=== PATIENT | male | born 1955 | race Caucasian/White ===

== ENCOUNTER 2023-05-23 10:24 | Outpatient (REF) | payer MEDICARE, OTHER, SELFPAY ==
--- NOTE | 2023-05-23 10:33 | ECG_ITS ---
Test Reason : HYPERTENSION Blood Pressure : / mmHG Vent. Rate : 085 BPM Atrial Rate : 085 BPM P-R Int : 156 ms QRS Dur : 086 ms QT Int : 382 ms P-R-T Axes : 052 -04 094 degrees QTc Int : 454 ms Normal sinus rhythm Nonspecific T wave abnormality Abnormal ECG No previous ECGs available Referred By: Chino Lombardo Electronically Signed By:JANET BURNETT MD
[2023-05-23 10:46] LABS: MANUAL DIFF FLAG NO
[2023-05-23 11:32] LABS: Basophils Percent Auto 0.5 % (0-2); Eosinophils Absolute Auto 0.2 X10*3/uL (0.0-0.4); Eosinophils Percent Auto 2.9 % (0-4); Hematocrit 43.9 % (42.0-52.0); Hemoglobin 14.6 g/dl (14.0-18.0); Imm Gran Abs Auto 0.06 X10*3/uL (0.00-0.03); Imm Gran Pct Auto 0.7 % (0.0-0.4); Lymphocytes Absolute Auto 2.8 X10*3/uL (1.2-4.9); Lymphocytes Percent Auto 34.5 % (20-40); Mean Corpuscular HGB Conc 33.3 g/dl (31.0-36.0); Mean Corpuscular Hemoglobin 29.9 pg (27.0-33.0); Mean Platelet Volume 9.7 fL (9.4-12.4); Monocytes Absolute Auto 0.6 X10*3/uL (0.1-1.2); Monocytes Percent Auto 7.2 % (2-11); Neutrophils Absolute Auto 4.3 x10*3/uL (2.0-8.3); Neutrophils Percent Auto 54.2 % (45-73); Platelet Count 226 X10*3/uL (160-400); Red Blood Count 4.88 X10*6/uL (4.60-5.80); Red Cell Distribution Width 13.9 % (11.0-16.0)
[2023-05-23 11:45] LABS: Estimated Average Glucose 171 mg/dL; Hemoglobin A1c % 7.6 % (<6.0)
[2023-05-23 12:28] LABS: Alanine Aminotransferase 16 U/L (0-40); Albumin Level 4.1 g/dL (3.5-5.0); Alkaline Phosphatase 92 U/L (39-117); Anion Gap 11 (12-20); Aspartate Amino Transferase 12 U/L (5-37); Bilirubin Total 0.4 mg/dL (0.0-1.0); Blood Urea Nitrogen 16 mg/dL (9-16); Calcium 8.9 mg/dL (8.4-10.2); Carbon Dioxide 27 mmol/L (22-29); Chloride 108 mmol/L (96-108); Cholesterol 148 mg/dL (<200); Estimated Glomerular Filt Rate > 60; Glucose Random 165 mg/dL (60-115); HDL Cholesterol 53 mg/dL (>40); LDL Cholesterol Calculated 85 mg/dL (<100); Potassium 4.5 mmol/L (3.3-5.1); Sodium 141 mmol/L (135-145); Total Protein 6.9 g/dL (6.5-8.0); Triglycerides 51 mg/dL (<150)
[2023-05-23 12:56] LABS: Creatinine Urine 196.37 mg/dL; Microalbum/Creatinine Ratio Ur 100.8 ug/mg cr (<30)
== END 2023-05-23 10:25 | disposition home or self-care (01) ==
LOC: HO.LAB 10:24
PROVIDERS: PCP Internal Medicine Medical Oncology; Visit Provider Internal Medicine Medical Oncology
DX: Z01.818 Encounter for other preprocedural examination (principal); R33.9 Retention of urine, unspecified; N40.1 Benign prostatic hyperplasia with lower urinary tract symptoms; I10 Essential (primary) hypertension; E11.9 Type 2 diabetes mellitus without complications
CPT/HCPCS: 36415; 80053; 80061; 82043; 82570; 83036; 85025; 87086; 93005

== ENCOUNTER 2023-05-24 12:56 | Outpatient (REF) | payer MEDICARE, OTHER, SELFPAY | END 2023-05-24 12:57 | disposition home or self-care (01) | LOC: HO.LAB 12:56 | PROVIDERS: PCP Internal Medicine Medical Oncology; Visit Provider Internal Medicine Medical Oncology | DX: Z01.818 Encounter for other preprocedural examination (principal); R33.9 Retention of urine, unspecified | CPT/HCPCS: 87086; 87088; 87186 ==

== ENCOUNTER → 2024-03-28 09:47 | Outpatient (REF) | payer MEDICARE, OTHER, SELFPAY ==
--- NOTE | 2024-03-28 09:54 | CA_ITS ---
Acquisition Time: 2024-03-28 10:12:15 Total Exercise Time: 00:05:01 Test Indications: CP Medications: SEE H Protocol: MARLENI Max HR: 133 BPM 89% of Pred: 149 BPM Max BP: 164/094 mmHG Max Work Load: 5.4 METS Exercise stress test exercise 5 min 1 sec of Marleni protocol (stage 2 nmanually increaserd due to safety) achieivng 89% MPHR, with moderate SOB, no chest discomforts, with isolated PACs and PVCs, with normotensive response to exercise, without EKG changes. Breathing returned to baseline with rest. Test reviewed with Dr. York. Referred By: Chino Lombardo Overread By: Serina Dennis
== END ==
LOC: HO.CARD 09:47
PROVIDERS: PCP Internal Medicine Medical Oncology; Visit Provider Internal Medicine Medical Oncology
DX: E78.5 Hyperlipidemia, unspecified (principal); I10 Essential (primary) hypertension
CPT/HCPCS: 93017

== ENCOUNTER → 2024-03-28 09:54 | Outpatient (BNV) | payer MEDICARE, OTHER, SELFPAY | PROVIDERS: PCP Internal Medicine Medical Oncology; Visit Provider Nurse Practitioner | DX: R06.02 Shortness of breath (principal); I49.1 Atrial premature depolarization; I49.3 Ventricular premature depolarization | CPT/HCPCS: 93016; 93018 ==

== ENCOUNTER 2025-01-21 15:31 | Outpatient (AMB) | payer MEDICARE, OTHER, SELFPAY ==
--- OUTSIDE RECORDS SUMMARY | 2024-09-12 09:22 | XMS_ITS ---
Author Organization Chino Lombardo III, MD Address [address] [place] [address] [place] [address] Care Team Providers Care Survey Interviewer Name Role Phone Chino Lombardo Primary Care Provider Social History Sex Assigned At : Social History Observation Description Sex Assigned At Male Encounters Encounter Location Date Provider Diagnosis Chino Lombardo III, MD [address] [place] [address] [place] [address] 09/12/2024 Chino Lombardo Encounter for screening for malignant neoplasm of colon Z12.11 Assessments Encounter Date Diagnosis (ICD Code) Assessment Notes Treatment Notes Treatment Clinical Notes 09/12/2024 Encounter for screening for malignant neoplasm of colon (ICD-10 - Z12.11) Plan Of Treatment Pending Test Test Name Order Date COLOGUARD 09/12/2024 Next Appt Details Provider Name:Chino Lombardo, 01/22/2025 03:45:00 PM, [address] [place] [address] [place], [address], Provider Name:Chino Lombardo, 09/05/2025 02:00:00 PM, [address] [place] [address] [place], [address], Progress Notes * Brian RAMOS GDOB:[birth year] (69 yo M)Acc No.[id number]:09/12/2024 Patient: Elias Brian HARDEN :1955 A ge:69 Y S ex:Male Address:[address] [address], [place] [address] Subjective: * Chief Complaints: * * Medical History: * Surgical History: * Hospitalization/Major Diagno stic Procedure: * Medications: Objective: * Vitals: * Physical Examination: Assessment: * Assessment: 1. E ncounter for screening for malignant neoplasm of colon - Z12.11 Plan: * Treatment: * Procedure Codes: * true * Date: Generated for Neeru cronin/Ricky/Oscarsmitting on: 0 01/21/2025 04:16 PM EDT
--- NOTE | 2025-01-21 15:40 | MHC.OFFVIS ---
Vital Signs 01/21/25 15:41 Height 5 ft 10 in Intake Visit Reasons: 6m Allergies No Known Allergies Allergy (Mild, Unverified 01/21/25 15:46) NOT APPLICABLE Medication List - Last Reconciled 01/21/25 by Eliza Alfaro CNP atorvastatin 20 mg PO DAILY folic acid 1 mg PO DAILY gabapentin 1,800 mg PO DAILY insulin glargine (Basaglar KwikPen U-100 Insulin) units subcut lisinopril 20 mg PO DAILY metformin 1,000 mg PO BID HPI Comments Details: 69-year-old man with diabetes, bilateral foot neuropathic pain, and tremor. He was doing okay. Pain in feet was controlled with gabapentin. No falls. Sleep was okay. Tremor in hands may be slightly more. He had some trouble holding cup steady, otherwise no functional impairment. No difficulty eating or swallowing. [facility] Medical History (Updated 01/21/25 @ 15:44 by Eliza Alfaro CNP) Benign essential tremor Tarsal tunnel syndrome Review of Systems Const Denies chills, Denies daytime sleepiness, Denies difficulty sleeping, Denies fatigue, Denies fever(s), Denies frequent falls, Denies headache(s), Denies increased appetite, Denies poor appetite, Denies snoring, Denies weakness, Denies weight gain and Denies weight loss Eyes Denies loss of vision ENT Denies vertigo, Denies dizziness and Denies headache(s) Card Denies chest pain at rest, Denies chest pain with activity, Denies syncope, Denies leg edema and Denies palpitations Resp Denies snoring GI Denies constipation, Denies heartburn, Denies diarrhea and Denies nausea Denies urinary frequency, Denies urinary incontinence and Denies urinary urgency Musc Denies abnormal gait, Reports numbness and Reports tingling Skin/Breast Denies dry skin and Denies rash Neuro Denies abnormal gait, Denies vertigo, Denies dizziness, Denies syncope, Denies frequent falls, Denies headache(s), Denies lack of coordination, Denies loss of vision, Denies memory loss, Reports numbness, Denies restless legs, Denies seizure-like activity, Reports tingling, Denies paresthesias, Reports tremor(s) and Denies weakness Psych Denies anxiety, Denies depression, Denies auditory hallucinations, Denies memory loss, Denies visual hallucinations and Denies suicidal ideation Endo Denies fatigue and Denies palpitations Physical Exam Const Other: General Appearance:? normal, in no acute distress. Skin:? no rashes, no significant birthmarks. Heart:? S1, S2 normal, no murmurs. Lungs:? clear anteriorly and posteriorly. Extremities:? no edema. Psych:? alert, oriented, cognitive function intact, cooperative with exam. Neuro Other: Mental Status:?Normal attention, orientation, memory and affect.? Cranial Nerves:?Pupils are equal, round and reactive to light. External occular muscles are intact. Visual lemon are full. Face is symmetrical. Facial sensations are normal. Tongue is midline. Palate elevates symmetrically. Shoulder shrugging is normal. Hearing to bedside conversation is normal. Coordination:?No ataxia,?no titubation.? Gait Exam: Within normal limits. Cerebellar Signs:?Prxoux-ob-exdk with tremor. Extrapyramidal System:?No tremor, rigidity with normal facial expressions.? Pronator Drift:?Not present.? Involuntary Movements:?Fine tremors of the outstretched hands, R > L? Speech:?Normal.? Assessment & Plan Assessment & Plan (1) Tarsal tunnel syndrome: Code(s): G57.50 - Tarsal tunnel syndrome, unspecified lower limb Category: Medical Qualifiers: Laterality: bilateral Qualified Code(s): G57.53 - Tarsal tunnel syndrome, bilateral lower limbs Plan: Continue gabapetin 600mg 3 tablets daily. (2) Neuropathic pain: Code(s): M79.2 - Neuralgia and neuritis, unspecified Category: Medical (3) Benign essential tremor: Code(s): G25.0 - Essential tremor Category: Medical Plan: Discussed option for medication, declining at this time. Plan . Coding Level of Care Code Est Pt Level 4 (11605) Diagnoses Tarsal tunnel syndrome of both lower extremities G57.53 Laterality: bilateral Neuropathic pain M79.2 Benign essential tremor G25.0
--- OUTSIDE RECORDS SUMMARY | 2025-01-21 16:16 | XMS_ITS | Continuity of Care Document ---
Author Name [facility] Organization [facility] Care Team Providers Care Airdox Fitter Name Role Phone [facility] Unavailable Unavailable Problems Combined list of problems from [facility] of [facility] and [facility] Affairs facilities. It does not include entries that were removed or entered in error. Problem Status Onset Date Problem Type Date of Resolution Comments Source Alcohol Abuse Active Condition [facility] Dyslipidemia (ICD-9-CM 272.4) Active Condition [facility] Essential hypertension Active Condition [facility] HTN Active Condition [facility] Peripheral Nerve Disease Active Condition May 18, 2011 Entered By: GO VALDES Comment: NCS 04/04 bilateral distal tibial neuropathy c/w tarsalNov 2010 Entered By: GO VALDES Comment: tunnel syndrome [facility] PMR - Polymyalgia rheumatica Active Condition Jul 06, 2021 Entered By: GO VALDES Comment: 10/2019 tx'ed for a year with prednisone [facility] Screening for Malignant Neoplasms of colon Active Condition Jan 15, 2008 Entered By: BOBBI TA Comment: Last Colonoscopy JUL 2007: Neg CRC; Repeat 2018 [facility] Type 2 diabetes mellitus Active Condition [facility] Medications Combined list of outpatient medications from [facility] and [facility] facilities.Medications provided include 1) outpatient medications from the last 15 months, and 2) patient-reported medications. Medication Details Route Status Patient Instructions Prescription Expires Prescription Number Last Dispense Date Ordering Provider Order Date Order Qty Source ASPIRIN 81MG TAB,EC TAKE ONE TABLET BY MOUTH EVERY DAY ORAL ACTIVE BASIM VALDES 2007 IELD ATORVASTATI N TAB TAKE BY MOUTH ONCE DAILY ORAL ACTIVE BASIM VALDES 2021 [facility] GABAPENTIN 600MG TAB TAKE ONE TABLET BY MOUTH THREE TIMES A DAY FOR NERVE PAIN ORAL 12/29/2024 [id number] 5 Joelle FITCH 2023 270 [facility] LISINOPRIL TAB TAKE BY MOUTH ONCE DAILY ORAL ACTIVE BASIM VALDES 2021 IELD METFORMIN HCL TAB,ORAL TAKE BY MOUTH TWICE DAILY ORAL ACTIVE BASIM VALDES 2021 IELD Immunizations Combined list of available immunizations from the Department of Defense and Veterans Affairs facilities. Immunization Series Date Given Administered By Site Reaction Lot Number CVX Code Drug Barrel Scraper Status Comments Source COVID-19 (MODERNA), MRNA, LNP-S, PF, 100 MCG/0.5ML DOSE OR 50 MCG/0.25ML DOSE 3 2021 207 complet ed MOD; [id number]; 2 IELD COVID-19 (MODERNA), MRNA, LNP-S, PF, 100 MCG OR 50 MCG DOSE 3 2020 207 complet ed MOD; [id number]; 2 IELD INFLUENZA, UNSPECIFIED FORMULATION 2020 88 complet ed [facility] COVID-19 (MODERNA), MRNA, LNP-S, PF, 100 MCG/0.5 ML DOSE 2 2020 207 complet ed MOD; [id number]; 1 IELD COVID-19 (MODERNA), MRNA, LNP-S, PF, 100 MCG/0.5 ML DOSE 1 2020 207 complet ed MOD; [id number]; 1 IELD zoster recombinant 2019 [facility], () Not Given zoster recombina nt [facility] zoster recombinant 2018 [facility], () Not Given zoster recombina nt [employer] INFLUENZA, SEASONAL, INJECTABLE 2018 141 complet ed outside pcp [facility] Encounters Combined list of: 1) Encounters from Department of Veterans Affairs facilities going backup to the last 18 months, not all VA inpatient encounters are included; 2) Encounters from the Department of Defense facilities going backup to 280 months. Location Location Details Encounter Type Encounter Number Reason For Visit Attending Provider ADM Date DC Date Status Disposition Source [facility] En[facility] [id number] 12/28 [facility] Social History Combined list of available smoking, tobacco, and other social history from Department of Defense and Veterans Affairs facilities. 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 [facility] This section is an empty social history section. DoD
--- OUTSIDE RECORDS SUMMARY | 2025-01-21 16:17 | XMS_ITS | Encounter Summary ---
Author Organization [facility] Address [address] [place] [id number] Phone Care Team Providers Care Stogy Roller Name Role Phone Chino Lombardo MD Primary Care Provider [phone] Encounter Details Date Type Department Care Team (Late st Contact Info) Description 05/31/2023 Procedure Pass [facility] [address] [place] [address] Social History Tobacco Use Types Packs/Day Years Used Date Smoking Tobacco: Some Days Cigars Smokeless Tobacco: Never Alcohol Use Standard Drinks/Week Comments Yes 4 (1 standard drink = 0.6 oz pur e alcohol) Education Answer Date Recorded Are you interested in more education? Not on hollie e 01/16/2023 Are you concerned about learning? Not on file 01/16/2023 No 01/16/2023 No 01/16/2023 Digital Access Answer Date Recorded No 01/16/2023 No 01/16/2023 Reliable internet access at home? Not on file 01/16/2023 Device with a working camera? Not on file Intimate Partner Violence Answer Date R ecorded Are you denied basic needs s uch as food, clothing, or medical care? No 05/31/2023 In the past 12 months have y ou been in a relationship with a person who hurts, threatens, or tries to control you? No 05/31/2023 Are you denied basic needs s uch as food, clothing, or medical care? No 05/31/2023 In the past 12 months have y ou been in a relationship with a person who hurts, threatens, or tries to control you? No 05/31/2023 Sex and Gender Information Value Date Recorded Sex Assigned at Not on file Legal Sex Male 2:38 PM EDT Gender Identity Not on file Sexual Orientation Not on file documented as of this encounter Plan of Treatment Not on file documented as of this encounter Visit Diagnoses Not on filedocumented in this encounter Care Teams Stogy Roller Relationship Specialty Start Date End Date Chino Lombardo MD [address] [place] [id number] PCP - General Medical Oncology 01/16/23 documented as of this encounter Additional Source Comments The information contained in this document represents components of the legal health record. It is not the complete legal health record.[facility]
--- OUTSIDE RECORDS SUMMARY | 2025-01-21 16:17 | XMS_ITS | Clinical Summary ---
Author Organization [facility] lin Address [address] [place] [address] Care Team Providers Care Grounds Manager Name Role Phone Devon Perez MD Primary Care Provider Allergies No known active allergies Medications lisinopril (PRINIVIL,ZESTR IL) 10 MG tablet TAKE 1 TABLET BY MOUTH DAILY 3 09/19/2016 Active gabapentin (NEURONTIN) 600 MG tablet TAKE 1 TABLET BY MOUTH TWICE A DAY 2 09/23/2016 Active PREVIDENT 5000 BOOSTER PLUS 1.1 % pste USE DIRECTED 2 09/20/2016 Active omeprazole (PriLOSEC) 20 MG capsule TAKE 1 TABLET BY MOUTH TWICE A DAY TWICE A DAY ORAL 28 DAYS 1 04/14/2017 Active metFORMIN (GLUCOPHAGE) 500 MG tablet Take 500 mg by mouth 2 (two) times a day with meals. Active atorvastatin (LIPITOR) 10 MG tablet Take 10 mg by mouth daily. Active insulin glargine (LANTUS) 100 unit/mL injection Inject 12 Units under the skin nightly. Active folic acid (FOLVITE) 1 MG tablet TAKE 1 TABLET BY MOUTH EVERY DAY 3 01/21/2019 Active DAILY-YOVANA tablet TAKE 1 TABLET EVERY DAY 0 12/21/2018 Active predniSONE (DELTASONE) 5 MG tablet TAKE 1/2 TABLET IN THE MORNING 0 12/21/2018 Active tamsulosin (FLOMAX) 0.4 mg cap TAKE 1 CAPSULE BY MOUTH EVERY DAY DAILY AT 9PM 5 12/26/2018 Active VITAMIN B-1, MONONITRATE, 100 mg tab TAKE 1 TABLET BY MOUTH EVERY DAY 0 12/21/2018 Active Social History Tobacco Use Types Packs/Day Years Used Date Smoking Tobacco: Light Smoker Smokeless Tobacco: Never Tobacco Cessation:Ready to Q uit: Yes; Counseling Given: Yes Comments:occasional cigar Sex and Gender Information Value Date Recorded Sex Assigned at Not on file Legal Sex Male 11:29 AM EDT Gender Identity Not on file Sexual Orientation Not on file Last Filed Vital Signs Vital Sign Reading Time Taken Comments Blood Pressure 122/86 03/09/2019 2:03 PM EDT Pulse 70 03/09/2019 2:03 PM EDT Temperature 36.3 C (97.3 F) 03/09/2019 2:03 PM EDT Respiratory Rate 18 03/09/2019 2:03 PM EDT Oxygen Saturation 98% 03/09/2019 2:03 PM EDT Inhaled Oxygen Concentration - - Weight 83.9 kg (185 lb) 12/24/2018 3:21 PM EDT Height 172.7 cm (5' 8 ) 12/24/2018 3:21 PM EDT Body Mass Index 28.13 12/24/2018 3:21 PM EDT Plan of Treatment Health Maintenance Due Date Last Done Comments Colorectal Cancer: COLONOSCO PY Screening every 10 yrs (or Modifier) 1955 Depression: Screening Annual ly using PHQ-2/9 in Adults 18 yrs or above (or HM Modifier)([facility]) 1971 Hepatitis C Virus Infection in Adolescents and Adults: Screening (or Modifier) ([facility]) 1971 [facility] Screening Reminder: Sanjuanita perez for all adults ([facility]) 1971 Tobacco Smoking Cessation: i n Adults excluding Women: Behavioral and Pharmacotherapy Interventions ([facility]) 1971 DTaP/Tdap/Td Vaccines ([facility]) (1 - Tdap) 02/13/1972 Colorectal Cancer Screening 45 -75 Yrs (or HM Modifier ) 1998 Colorectal Cancer: FLEXIBLE SIGMOIDOSCOPY Screening every 5 yrs 1998 Colorectal Cancer: Fecal Imm unochemical Test (FIT) Annually [facility] 1998 Colorectal Cancer: High-sens itivity gFOBT Screening Annually [facility] 1998 Colorectal Cancer: Stool Col oguard Screening every 3 yrs 1998 Colorectal Cancer:CT Colonography Screening every 5 yr s 1998 Pneumococcal Vaccination Scr eening: Patients 50+ yrs of age ([facility]) (1 of 1 - PCV) 2003 Zoster/Shingles Vaccine Seri es Screening: Adults aged 18+ yrs (or HM Modifiers)([facility]) (1 of 2) 2003 COVID-19 Vaccine Screening: Initial Series and Booster Status ([facility]) (2023- season) 2024 Flu Vaccination: Ages 65+: Y early High Dose Recommended (or Modifier)([facility]) 01/24/2025 RSV Vaccines (1 - 1-dose 75+ series) 02/13/2028 Medical Devices Not on file Insurance [facility] MEDICARE Care Teams Grounds Manager Relationship Specialty Start Date End Date Devon Perez MD [address] [place] [address] PCP - [employer] Vice President 03/09/19
--- OUTSIDE RECORDS SUMMARY | 2025-01-21 16:17 | XMS_ITS ---
Author Name [facility] Organization Unknown Care Team Organization Name Specialty Phone Email Start Date End [facility] JENNIFER FELDMAN Primary Care 10/25/2024 Meir FELDMAN Primary Care 10/18/2024
--- OUTSIDE RECORDS SUMMARY | 2025-01-21 16:17 | XMS_ITS | Data Portability ---
Author Organization [place] - [facility] Medical -[place], [place]_[facility] [place] Address [address] [place] [address] Care Team Providers Care Contracting Specialist Name Role Phone DEVON FELDMAN Primary Care Provider DONNA CASTORENA Primary Care Provider [facility] (PRE ADMISSION TESTING) Urolog ist [facility] [employer] [employer] [phone] NORA TELLEZ Neurologist [employer] Cocktail Lounge Manager [phone] Assessment Encounter Date Assessment Date Assessment LastModified by Organization Details LastModified Time 10/16/2023 10/16/2023 During today's AWV we reviewed the followin - Any pertinent findings on the HRA (Health Risk Assessment) were reviewed and discussed with the patient. 2 - The patient's medical and family history was updated as needed. 3 - The patient's list of current providers, specialists and suppliers was updated. 4 - The patient's body weight and blood pressure was recorded in the chart. 5 - Cognitive function was assessed with a brief test. 6 - Depression screening was assessed. 7a - We reviewed USPSTF guidelines for the following as applicable to this patient: - Pre-Diabetes/DM II screening - Colorectal cancer screening - HTN screening - Vitamin D deficiency screening - Hearing loss screening - Healthy diet and physical activity 7b - We also reviewed current guidelines for vaccinations as applicable to this patient: - Flu vaccine yearly - Tdap vaccine w/Td or Tdap q10 years thereafter - Zoster vaccine - Prevnar 13 vaccine - Pneumococcal vaccine 8 - Lifestyle interventions to reduce health risks and promote self management and wellness were completed where applicable 9 - We updated the prevention plan of service including personalized health advice and referrals (where applicable) to health education and/or preventive counselling services or programs for the following (again, if and where applicable, if patient was amenable): - Fall prevention - Nutrition - Physical activity - Weight loss - Tobacco use cessation 10 - Advanced care planning was discussed at the patient's discretion. If the patient was amenable, we discussed their preparation of an advanced directive in case of an injury or illness that might prevent them from making health care decisions. 11 - If the patient is taking opioid medication(s), we provided information on non-opioid treatment options. Additionally, the severity of the patient's pain was evaluated and the current treatment plan was reviewed with the patient in an active discussion. [email or web address] Not available 10/16/2023 15:14:31 Plan of Treatment Reminders Order Date Submit Date Provider Last Modified By Organization Details Last Modified Time Details Appointments None recorded. Lab HbA1c (hemoglobin A1c), blood [address] [facility] Clinical Laboratory [facility], [address] [place] [address], [id number], 4 23:07:48 microalbumi n, urine 2023 024 [facility], [address] [place] [address], [id number], 4 23:07:49 CMP, serum or plasma 2023 024 [facility], [address] [place] [address], [id number], 4 23:07:47 HbA1c (hemoglobin A1c), blood 2022 023 [facility], [address] [place] [address], 56030, 3 22:34:50 CMP, serum or plasma 2022 023 [facility], [address] [place] [address], 21898, 3 22:34:48 microalbumi n, urine 2022 023 [facility], [address] [place] [address], 57652, 3 22:34:51 lipid panel, serum 2022 023 [facility], [address] [place] [address], 75847, 3 22:34:50 microalbumi n/creatinin e, mass ratio, urine 2022 023 [facility], [address] [place] [address], 33084, 3 06:27:27 HbA1c (hemoglobin A1c), blood 2022 023 [facility], [address] [place] [address], 44027, 3 14:16:47 lipid panel, serum 2022 023 [facility], [address] [place] [address], 76032, 3 06:27:27 Referral cardiologis t referral - PLEASE CONTACT PATIENT TO SCHEDULE APPOINTMENT , NOTIFY OUR OFFICE OF APPOINTMENT DATE (VIDYA Kearns , EXT [id number]) 2023 024 [email or web address] [address] [place], [address], 5 10:01:10 Procedures None recorded. Surgeries None recorded. Imaging CT, heart, w/o contrast, w/ coronary calcium score - PLEASE CONTACT PATIENT TO SCHEDULE APPOINTMENT , NOTIFY OUR OFFICE OF APPOINTMENT DATE (VIDYA Kearns , EXT [id number]) 2023 024 [facility], [address], [place], [address], 10:31:55 Medication Orders atorvastati n 20 mg tablet 2023 024 [id number], [address] [place], [address], 4 14:28:31 ofloxacin 0.3 % ear drops 2022 023 [email or web address] [id number], [address] [place], [address], 15:11:31 Patient TargetsNo targets recorded. Patient Instructions Encounter Date Encounter Id Patient Instructions Last Modified By Organization Details Last Modified Time 01/03/2023 [id number] stable, cont wit h urology, chk labs, cont meds [email or web address] Not available 01/03/2023 13:57:15 10/16/2023 [id number] advance care planning: care instructions [email or web address] Not available 10/16/2023 16:15:59 advance directiv es: care instructions [email or web address] Not available 10/16/2023 16:15:59 learning about m ood disorders [email or web address] Not available 10/16/2023 16:15:59 learning about depression screening [email or web address] Not available 10/16/2023 16:15:59 It was good to s ee you in the office today for your Medicare Annual Wellness Visit. You have been provided some information on healthy nutrition, including a diet rich in fruits and vegetables, minimizing simple carbohydrates, salt, and saturated fats. I want to encourage regular cardiovascular exercise such as walking at least 30 minutes daily, 5 times per week. Please remember to schedule any preventive health measures that we talked about today. You have also been provided education on fall prevention and community-based lifestyle interventions to help reduce health risks and promote healthy living in your Annual Wellness folder. Screening Recommendations 1. Vaccines Pneumonia: No further need Influenza: Next Fall 2. Colorectal Cancer Screening: Colonoscopy (every 10 years) Next Screening 3. Annual Prostate Screening 4. Annual Depression Screening 5. Annual Alcohol Screening 6. Annual Fall Risk Screening 7. Annual Health Risk Assessment [email or web address] Not available 10/16/2023 15:28:45 Reason for Referral Acute Care Assistant Referral for Ca lcification of coronary artery Please see for elevated calcium score, EST is negative at this time. PLEASE CONTACT PATIENT TO SCHEDULE APPOINTMENT, NOTIFY OUR OFFICE OF APPOINTMENT DATE (VIDYA Kearns [phone], EXT [id number]) Referring Physician: Devon Feldman, Internal Medicine, Encounter Date: 04/10/2024 Results Created Date Observation Date Name Description Value Unit Range Abnormal Flag Note LastModifiedBy Organization Detail LastModifiedTime 06/13/20 23 06/13/2023 ANION GAP anion gap 13 mEq/L 4 - 20 Not Available [facility] [address] [place] [address], [id number], 06/13/2023 22:34:47 06/13/20 23 06/13/2023 COMPR EHENS PAUL METAB OLIC PANEL glucose 140 mg/dL 70 - 99 high Not Available [facility] [address] [place] [address], [id number], 06/13/2023 22:34:48 06/13/20 23 06/13/2023 COMPR EHENS PAUL METAB OLIC PANEL BUN 18 mg/dL 8 - 23 Not Available [facility] [address] [place] [address], 18714, 06/13/2023 22:34:48 06/13/20 23 06/13/2023 COMPR EHENS PAUL METAB OLIC PANEL creatinine 1.10 mg/dL 0.8 - 1.40 Not Available [facility] [address] [place] [address], 35987, 06/13/2023 22:34:48 06/13/20 23 06/13/2023 COMPR EHENS PAUL METAB OLIC PANEL BUN/creat ratio 16.4 Not Available [facility] [address] [place] [address], 86966, 06/13/2023 22:34:48 06/13/20 23 06/13/2023 COMPR EHENS PAUL METAB OLIC PANEL calcium 9.4 mg/dL 8.5 - 10.5 Not Available [facility] [address] [place] [address], 93611, 06/13/2023 22:34:48 06/13/20 23 06/13/2023 COMPR EHENS PAUL METAB OLIC PANEL osmolality 278.0 mOsm/ kg 270 - 290 Not Available [facility] [address] [place] [address], 55566, 06/13/2023 22:34:48 06/13/20 23 06/13/2023 COMPR EHENS PAUL METAB OLIC PANEL sodium 137 mEq/L 135 - 146 Not Available [facility] [address] [place] [address], 79976, 06/13/2023 22:34:48 06/13/20 23 06/13/2023 COMPR EHENS PAUL METAB OLIC PANEL potassium 4.7 mEq/L 3.5 - 5.4 SPECI MEN IS HEMOL YZED, RESUL TS MAY BE AFFEC GISELE Not Available [facility] [address] [place] [address], [id number], 06/13/2023 22:34:48 06/13/20 23 06/13/2023 COMPR EHENS PAUL METAB OLIC PANEL chloride 102 mEq/L 96 - 106 Not Available [facility] [address] [place] [address], [id number], 06/13/2023 22:34:48 06/13/20 23 06/13/2023 COMPR EHENS PAUL METAB OLIC PANEL carbon dioxide 22 mEq/L 19 - 32 Not Available [facility] [address] [place] [address], 35174, 06/13/2023 22:34:48 06/13/20 23 06/13/2023 COMPR EHENS PAUL METAB OLIC PANEL total protein 6.5 gm/dL 6.1 - 8.3 JABARI LS FOR PATIE NTS LYING DOWN COULD BE MUCH 0.7 GM/DL LOWER . Not Available [facility] [address] [place] [address], 86621, 06/13/2023 22:34:48 06/13/20 23 06/13/2023 COMPR EHENS PAUL METAB OLIC PANEL albumin 4.5 gm/dL 3.5 - 5.2 Not Available [facility] [address] [place] [address], [id number], 06/13/2023 22:34:48 06/13/20 23 06/13/2023 COMPR EHENS PAUL METAB OLIC PANEL globulin 2.0 gm/dL 1.9 - 3.7 Not Available [facility] [address] [place] [address], 96682, 06/13/2023 22:34:48 06/13/20 23 06/13/2023 COMPR EHENS PAUL METAB OLIC PANEL A/G ratio 2.3 Not Available [facility] [address] [place] [address], 14812, 06/13/2023 22:34:48 06/13/20 23 06/13/2023 COMPR EHENS APUL METAB OLIC PANEL AST (SGOT) 15 U/L 9 - 50 Not Available [facility] [address] [place] [address], 11240, 06/13/2023 22:34:48 06/13/20 23 06/13/2023 COMPR EHENS PAUL METAB OLIC PANEL ALT (SGPT) 18 U/L 5 - 50 Not Available [facility] Laboratory [address] [place] [address], 70519, 06/13/2023 22:34:48 06/13/20 23 06/13/2023 COMPR EHENS PAUL METAB OLIC PANEL alkaline phosphatase 73 U/L 40 - 125 Not Available [facility] [address] [place] [address], 50081, 06/13/2023 22:34:48 06/13/20 23 06/13/2023 COMPR EHENS PAUL METAB OLIC PANEL total bilirubin 0.6 mg/dL 0.0 - 1.2 Not Available [facility] [address] [place] [address], 13456, 06/13/2023 22:34:48 06/13/20 23 06/13/2023 EGFR eGFR 72 mL/mi n/1.7 3M >60 EFFEC TIVE DECEM USHA 6 2020, [facility] HAS IMPLE MENTE D NKF-A SN RECOM ANSHUL D 2020 CKD-E PI EGFR REFIT CALCU LATIO N THAT DOES NOT INCLU DE A COEFF ICIEN T FOR RACE. FOR MORE INFOR BRODIE LOPEZ E SEE THE ANNOU NCEME NT AT WWW.E SCLAB .COM Not Available [facility] [address] [place], [address], 06/13/2023 22:34:49 06/13/20 23 06/13/2023 HEMOG LOBIN A1C hemoglobin A1C 7.8 % 4.2 - 5.6 high HEM OGLOB IN A1C DEGRE E OF GLUCO SE CONTR OL <5.7 DECRE ASED RISK OF DIABE RADHA 5.7-6 .4 INCRE ASED RISK OF DIABE RADHA >6.4 CONSI STENT WITH DIABE RADHA NOTE: CONDI TIONS THAT SHORT EN RED CELL SURVI SCHUYLER,E .G HB SS, HB CC, AND HB SC, OR OTHER CAUSE S OF HEMOL YTIC ANEMI A MAY YIELD FALSE LY LOW RESUL TS. HB F HIGHE R THAN 15% OF TOTAL HEMOG LOBIN MAY YIELD FALSE LY LOW RESUL TS. IRON DEFIC IENCY ANEMI A MAY YIELD FALSE LY HIGH RESUL TS. Not Available [facility] [address] [place] [address], 18454, 06/13/2023 22:34:49 06/13/20 23 06/13/2023 LIPID 1 PROFI LE (CHOL ,TRIG ,HDL, LDL) cholesterol 172 mg/dL 0 - 199 Not Available [facility] [address] [place] [address], 67246, 06/13/2023 22:34:50 06/13/20 23 06/13/2023 LIPID 1 PROFI LE (CHOL ,TRIG ,HDL, LDL) triglyceride 114 mg/dL 0 - 149 Not Available [facility] [address] [place], [address], 06/13/2023 22:34:50 06/13/20 23 06/13/2023 LIPID 1 PROFI LE (CHOL ,TRIG ,HDL, LDL) HDL 59 mg/dL >39 Not Available [facility] [address] [place] [address], 21948, 06/13/2023 22:34:50 06/13/20 23 06/13/2023 LIPID 1 PROFI LE (CHOL ,TRIG ,HDL, LDL) LDL 90.2 mg/dL <100 <100 OPTIM AL <130 NEAR OPTIM AL Not Available [facility] [address] [place] [address], 43221, 06/13/2023 22:34:50 06/13/20 23 06/13/2023 LIPID 1 PROFI LE (CHOL ,TRIG ,HDL, LDL) chol/HDL 2.9 <4.97 Not Available [facility] [address] [place] [address], 11115, 06/13/2023 22:34:50 06/13/20 23 06/13/2023 ALBUM IN,UR INE-R ANDOM creatinine, random (U) 22.66 mg/dL 39 - 259 low Not Available [facility] [address] [place] [address], [id number], 06/13/2023 22:34:51 06/13/20 23 06/13/2023 ALBUM IN,UR INE-R ANDOM albumin,urin e random 17.6 mg/L <30 Not Available [facility] [address] [place] [address], 19780, 06/13/2023 22:34:51 06/13/20 23 06/13/2023 ALBUM IN,UR INE-R ANDOM albumin/crea t ratio random 77.7 mg/g_ creat <30 high INTER PRETA TIVE GUIDE JABARI L: 0-29 MODER ATELY INCRE ASED: 30-30 0 SEVER TONY INCRE ASED: >300 Not Available [facility] [address] [place] [address], 14207, 06/13/2023 22:34:51 10/16/19 24 10/16/2023 ANION GAP anion gap 13 mEq/L 4 - 20 Not Available [facility] [address] [place], [address], 10/16/2023 22:42:41 10/16/19 24 10/16/2023 COMPR EHENS PAUL METAB OLIC PANEL glucose 170 mg/dL 70 - 99 high Not Available [facility] [address] [place] [address], 53320, 10/16/2023 22:42:41 10/16/19 24 10/16/2023 COMPR EHENS PAUL METAB OLIC PANEL BUN 16 mg/dL 8 - 23 Not Available [facility] [address] [place] [address], 09226, 10/16/2023 22:42:41 10/16/19 24 10/16/2023 COMPR EHENS PAUL METAB OLIC PANEL creatinine 0.86 mg/dL 0.8 - 1.40 Not Available [facility] [address] [place] [address], 24675, 10/16/2023 22:42:41 10/16/19 24 10/16/2023 COMPR EHENS PAUL METAB OLIC PANEL BUN/creat ratio 18.6 Not Available [facility] [address] [place] [address], 35624, 10/16/2023 22:42:41 10/16/19 24 10/16/2023 COMPR EHENS PAUL METAB OLIC PANEL calcium 9.2 mg/dL 8.5 - 10.5 Not Available [facility] [address] [place] [address], 64743, 10/16/2023 22:42:41 10/16/19 24 10/16/2023 COMPR EHENS PAUL METAB OLIC PANEL osmolality 286.4 mOsm/ kg 270 - 290 Not Available [facility] [address] [place] [address], 46493, 10/16/2023 22:42:41 10/16/19 24 10/16/2023 COMPR EHENS PAUL METAB OLIC PANEL sodium 141 mEq/L 135 - 146 Not Available [facility] [address] [place] [address], 71678, 10/16/2023 22:42:41 10/16/19 24 10/16/2023 COMPR EHENS PAUL METAB OLIC PANEL potassium 4.4 mEq/L 3.5 - 5.4 Not Available [facility] [address] [place] [address], 22265, 10/16/2023 22:42:41 10/16/19 24 10/16/2023 COMPR EHENS PAUL METAB OLIC PANEL chloride 106 mEq/L 96 - 106 Not Available [facility] [address] [place] [address], 81642, 10/16/2023 22:42:41 10/16/19 24 10/16/2023 COMPR EHENS PAUL METAB OLIC PANEL carbon dioxide 22 mEq/L 19 - 32 Not Available [facility] [address] [place] [address], 96725, 10/16/2023 22:42:41 10/16/19 24 10/16/2023 COMPR EHENS PAUL METAB OLIC PANEL total protein 6.5 gm/dL 6.1 - 8.3 JABARI LS FOR PATIE NTS LYING DOWN COULD BE MUCH 0.7 GM/DL LOWER . Not Available [facility] [address] [place] [address], 82907, 10/16/2023 22:42:41 10/16/19 24 10/16/2023 COMPR EHENS PAUL METAB OLIC PANEL albumin 4.4 gm/dL 3.5 - 5.2 Not Available [facility] [address] [place] [address], 63029, 10/16/2023 22:42:41 10/16/19 24 10/16/2023 COMPR EHENS PAUL METAB OLIC PANEL globulin 2.1 gm/dL 1.9 - 3.7 Not Available [facility] [address] [place] [address], 13981, 10/16/2023 22:42:41 10/16/19 24 10/16/2023 COMPR EHENS PAUL METAB OLIC PANEL A/G ratio 2.1 Not Available [facility] [address] [place] [address], 34028, 10/16/2023 22:42:41 10/16/19 24 10/16/2023 COMPR EHENS PAUL METAB OLIC PANEL AST (SGOT) 13 U/L 9 - 50 Not Available [facility] [address] [place] [address], 93041, 10/16/2023 22:42:41 10/16/19 24 10/16/2023 COMPR EHENS PAUL METAB OLIC PANEL ALT (SGPT) 13 U/L 5 - 50 Not Available [facility] [address] [place] [address], 79391, 10/16/2023 22:42:41 10/16/19 24 10/16/2023 COMPR EHENS PAUL METAB OLIC PANEL alkaline phosphatase 113 U/L 40 - 125 Not Available [facility] [address] [place] [address], 27854, 10/16/2023 22:42:41 10/16/19 24 10/16/2023 COMPR EHENS PAUL METAB OLIC PANEL total bilirubin 0.3 mg/dL 0.0 - 1.2 Not Available [facility] [address] [place] [address], 40796, 10/16/2023 22:42:41 10/16/19 24 10/16/2023 EGFR eGFR 93 mL/mi n/1.7 3M >60 EFFEC TIVE DECEM USHA 6 2020, [facility] HAS IMPLE MENTE D NKF-A SN RECOM ANSHUL D 2020 CKD-E PI EGFR REFIT CALCU LATIO N THAT DOES NOT INCLU DE A COEFF ICIEN T FOR RACE. FOR MORE INFOR BRODIE LOPEZ SEE THE ANN NCEME NT AT WWW.E SCLAB .COM Not Available [facility] [address] [place] [address], 38610, 10/16/2023 22:42:43 10/16/19 24 10/16/2023 HEMOG LOBIN A1C hemoglobin A1C 7.9 % 4.2 - 5.6 high HEM OGLOB IN A1C DEGRE E OF GLUCO SE CONTR OL <5.7 DECRE ASED RISK OF DIABE RADHA 5.7-6 .4 INCRE ASED RISK OF DIABE RADHA >6.4 CONSI STENT WITH DIABE RADHA NOTE: CONDI TIONS THAT SHORT EN RED CELL SURVI SCHUYLER,E .G HB SS, HB CC, AND HB SC, OR OTHER CAUSE S OF HEMOL YTIC ANEMI A MAY YIELD FALSE LY LOW RESUL TS. HB F HIGHE R THAN 15% OF TOTAL HEMOG LOBIN MAY YIELD FALSE LY LOW RESUL TS. IRON DEFIC IENCY ANEMI A MAY YIELD FALSE LY HIGH RESUL TS. Not Available [facility] [address] [place], [address], 10/16/2023 22:42:43 10/16/19 24 10/16/2023 ALBUM IN,UR INE-R ANDOM creatinine, random (U) 152.89 mg/dL 39 - 259 Not Available [facility] [address] [place] [address], 20533, 10/16/2023 22:42:44 10/16/19 24 10/16/2023 ALBUM IN,UR INE-R ANDOM albumin,urin e random 18.6 mg/L <30 Not Available [facility] [address] [place], [address], 10/16/2023 22:42:44 10/16/19 24 10/16/2023 ALBUM IN,UR INE-R ANDOM albumin/crea t ratio random 12.2 mg/g_ creat <30 INTER PRETA TIVE GUIDE JABARI L: 0-29 MODER ATELY INCRE ASED: 30-30 0 SEVER TONY INCRE ASED: >300 Not Available [facility] [address] [place] [address], 34368, 10/16/2023 22:42:44 01/11/20 24 01/11/2024 ANION GAP anion gap 14 mEq/L 4 - 20 Not Available [facility] [address] [place] [address], 99737, 01/11/2024 23:07:47 01/11/20 24 01/11/2024 COMPR EHENS PAUL METAB OLIC PANEL glucose 108 mg/dL 70 - 99 high Not Available [facility] [address] [place] [address], 61762, 01/11/2024 23:07:47 01/11/20 24 01/11/2024 COMPR EHENS PAUL METAB OLIC PANEL BUN 17 mg/dL 8 - 23 Not Available [facility] [address] [place] [address], 63450, 01/11/2024 23:07:47 01/11/20 24 01/11/2024 COMPR EHENS PAUL METAB OLIC PANEL creatinine 1.18 mg/dL 0.8 - 1.40 Not Available [facility] [address] [place] [address], 18046, 01/11/2024 23:07:47 01/11/20 24 01/11/2024 COMPR EHENS PAUL METAB OLIC PANEL BUN/creat ratio 14.4 Not Available [facility] [address] [place] [address], 43055, 01/11/2024 23:07:47 01/11/20 24 01/11/2024 COMPR EHENS PAUL METAB OLIC PANEL calcium 9.8 mg/dL 8.5 - 10.5 Not Available [facility] [address] [place] [address], 85417, 01/11/2024 23:07:47 01/11/20 24 01/11/2024 COMPR EHENS PAUL METAB OLIC PANEL osmolality 283.3 mOsm/ kg 270 - 290 Not Available [facility] [address] [place] [address], 57761, 01/11/2024 23:07:47 01/11/20 24 01/11/2024 COMPR EHENS PAUL METAB OLIC PANEL sodium 141 mEq/L 135 - 146 Not Available [facility] [address] [place] [address], 99658, 01/11/2024 23:07:47 01/11/20 24 01/11/2024 COMPR EHENS PAUL METAB OLIC PANEL potassium 4.6 mEq/L 3.5 - 5.4 Not Available [facility] [address] [place] [address], 37116, 01/11/2024 23:07:47 01/11/20 24 01/11/2024 COMPR EHENS PAUL METAB OLIC PANEL chloride 105 mEq/L 96 - 106 Not Available [facility] [address] [place] [address], 37879, 01/11/2024 23:07:47 01/11/20 24 01/11/2024 COMPR EHENS PAUL METAB OLIC PANEL carbon dioxide 22 mEq/L 19 - 32 Not Available [facility] [address] [place] [address], 28361, 01/11/2024 23:07:47 01/11/20 24 01/11/2024 COMPR EHENS PAUL METAB OLIC PANEL total protein 6.8 gm/dL 6.1 - 8.3 JABARI LS FOR PATIE NTS LYING DOWN COULD BE MUCH 0.7 GM/DL LOWER . Not Available [facility] [address] [place] [address], 77887, 01/11/2024 23:07:47 01/11/20 24 01/11/2024 COMPR EHENS PAUL METAB OLIC PANEL albumin 4.5 gm/dL 3.5 - 5.2 Not Available [facility] [address] [place] [address], 68043, 01/11/2024 23:07:47 01/11/20 24 01/11/2024 COMPR EHENS PAUL METAB OLIC PANEL globulin 2.3 gm/dL 1.9 - 3.7 Not Available [facility] [address] [place] [address], 13746, 01/11/2024 23:07:47 01/11/20 24 01/11/2024 COMPR EHENS PAUL METAB OLIC PANEL A/G ratio 2.0 Not Available [facility] [address] [place] [address], 32109, 01/11/2024 23:07:47 01/11/20 24 01/11/2024 COMPR EHENS PAUL METAB OLIC PANEL AST (SGOT) 12 U/L 9 - 50 Not Available [facility] [address] [place] [address], 90050, 01/11/2024 23:07:47 01/11/20 24 01/11/2024 COMPR EHENS PAUL METAB OLIC PANEL ALT (SGPT) 15 U/L 5 - 50 Not Available [facility] [address] [place] [address], 17810, 01/11/2024 23:07:47 01/11/20 24 01/11/2024 COMPR EHENS PAUL METAB OLIC PANEL alkaline phosphatase 90 U/L 40 - 125 Not Available [facility] [address] [place] [address], 32816, 01/11/2024 23:07:47 01/11/20 24 01/11/2024 COMPR EHENS PAUL METAB OLIC PANEL total bilirubin 0.5 mg/dL 0.0 - 1.2 Not Available [facility] [address] [place] [address], 04182, 01/11/2024 23:07:47 01/11/20 24 01/11/2024 EGFR eGFR 66 mL/mi n/1.7 3M >60 EFFEC TIVE DECEM USHA 6 2020, [facility] HAS IMPLE MENTE D NKF-A SN RECOM ANSHUL D 2020 CKD-E PI EGFR REFIT CALCU LATIO N THAT DOES NOT INCLU DE A COEFF ICIEN T FOR RACE. FOR MORE INFOR BRODIE LOPEZ E SEE THE JORGE WHARTON NT AT WWW.E SCLAB .Assignment Editor Not Available [facility] [address] [place] [address], 82461, 01/11/2024 23:07:48 01/11/20 24 01/11/2024 HEMOG LOBIN A1C hemoglobin A1C 8.1 % 4.2 - 5.6 high HEM OGLOB IN A1C DEGRE E OF GLUCO SE CONTR OL <5.7 DECRE ASED RISK OF DIABE RADHA 5.7-6 .4 INCRE ASED RISK OF DIABE RADHA >6.4 CONSI STENT WITH DIABE RADHA NOTE: CONDI TIONS THAT SHORT EN RED CELL SURVI SCHUYLER,E .G HB SS, HB CC, AND HB SC, OR OTHER CAUSE S OF HEMOL YTIC ANEMI A MAY YIELD FALSE LY LOW RESUL TS. HB F HIGHE R THAN 15% OF TOTAL HEMOG LOBIN MAY YIELD FALSE LY LOW RESUL TS. IRON DEFIC IENCY ANEMI A MAY YIELD FALSE LY HIGH RESUL TS. Not Available [facility] [address] [place] [address], [id number], 01/11/2024 23:07:48 01/11/20 24 01/11/2024 ALBUM IN,UR INE-R ANDOM creatinine, random (U) 84.35 mg/dL 39 - 259 Not Available [facility] [address] [place] [address], [id number], 01/11/2024 23:07:49 01/11/20 24 01/11/2024 ALBUM IN,UR INE-R ANDOM albumin,urin e random 75.3 mg/L <30 high Not Available [facility] [address] [place] [address], [id number], 01/11/2024 23:07:49 01/11/20 24 01/11/2024 ALBUM IN,UR INE-R ANDOM albumin/crea t ratio random 89.3 mg/g_ creat <30 high INTER PRETA TIVE GUIDE JABARI L: 0-29 MODER ATELY INCRE ASED: 30-30 0 SEVER TONY INCRE ASED: >300 Not Available [facility] [address] [place] [address], [id number], 01/11/2024 23:07:49 01/24/20 24 01/22/2024 CT, heart , w/o contr ast, w/ coron moses calci um score Kaycee fitzpatrick: KURTIS BARDALES [facility] [place] : 1954 Kaycee fitzpatrick Phone: -- CT CALCIU M SCORE CHEST W/O HISTOR Y: Screen ing for cardio vascul ar disord ers. TECHNI QUE: ECG-ga gisele, noncon trast CT throug h the heart using the calciu m scorin g protoc ol. Target ed CT protoc ol using this patien t's histor y and dose reduct ion techni ques based on the patien t's anatom y was employ ed to minimi ze radiat ion exposu re. COMPAR RITO: Septem usha 2019. FINDIN GS: Agatst on calciu m score: LM: 0 LAD: 68 CX: 449 RCA: 0 PDA: 0 Total: 517 Imagin g findin gs: The visual ized struct ures appear normal . IMPRES VICKY: Total Agatst on calciu m score: 517 In a publis hed study, betwee n 50% and 75% of people of the same gender and simila r age had the same or lower scores . From: [employer]ce[employer] Samuels l of cardio logy, 2000 87:133 5-1339 SCORE PLAQUE PROB. OF SIGNIF ICANT CAD 0 None detect able Very low (<5%) 1-10 Minima l Very unlike ly (<10%) 11-100 Mild Mild/m inimal stenos is likely 101-40 0 Modera te Non-ob struct paul CAD likely , obstru ctive diseas e possib le >400 Extens paul High likeli fuentes (>90%) of one or more 'signi ficant ' stenos is From: [facility] 1999;7 4:243- 252 Electr onical ly signed : 024 10:20 AM Mani Benitez M.D. For Provid ers who would like to speak to a radiol ogist regard ing this report , please call [phone] . Kaycee t: KURTIS VARMA 5 Appt No: [id number] Orderi ng physic mario: DEVON Fitzpatrick MD Exam Date: 2023 Finali zed: 2023 Imagin g Center : [facility] Imagin g [phone] [email or web address] [facility] [address] [place], [address], 01/24/2024 14:50:20 04/03/20 24 03/28/2024 exerc emile up s test No observ ation record ed. [address], [place], [address], 04/04/2024 19:15:55 Result Notes Documentation Provider Name and Address Organization Details Recorded Time Ct, Heart, W/o Contrast, W/ Coronary Calcium Score : Patient: KURTIS ROMO : 1955 Patient -- CT CALCIUM SCORE CHEST W/O HISTORY: Screening for cardiovascular disorders. TECHNIQUE: ECG-gated, noncontrast CT through the heart using the calcium scoring protocol. Targeted CT protocol using this patient's history and dose reduction techniques based on the patient's anatomy was employed to minimize radiation exposure. COMPARISON: March 10, 2020. FINDINGS: Agatston calcium score: LM: 0 LAD: 66 CX: 449 RCA: 0 PDA: 0 Total: 517 Imaging findings: The visualized structures appear normal. IMPRESSION: Total Agatston calcium score: 517 In a published study, between 50% and 75% of people of the same gender and similar age had the same or lower scores. From: [place] Journal of cardiology, 2001 87:8796-1532 SCORE PLAQUE PROB. OF SIGNIFICANT CAD 0 None detectable Very low (<5%) 1-10 Minimal Very unlikely (<10%) 11-100 Mild Mild/minimal stenosis likely 101-400 Moderate Non-obstructive CAD likely, obstructive disease possible >400 Extensive High likelihood (>90%) of one or more 'significant' stenosis From: [facility] 1999;74:243-252 Electronically signed: 01/24/2024 10:20 AM Ricky Benitez M.D. For Providers who would like to speak to a radiologist regarding this report, please call [phone]. Patient: KURTIS ROMO Appt No: [id number] Ordering physician: DEVON FELDMAN MD Exam Date: 01/22/2024 Finalized: 01/24/2024 Imaging [facility] [facility]/24/[facility]24 14:50:20 Problems Name Problem SNOMED Code Status Onset Date Resolution Date Notes Provider Name and Address Organization Details Recorded Time Calcifica tion of coronary artery 886234992 Active Carmelita andrea [facility]-[place] 4 14:47:01 Glaucoma 25836211 Active 2019 GLAUCOMA; Recorded 0 12:16PM by Taylor Mahoney Exam Prom oted acui ty set as * Not Available [facility] 2 13:59:37 Thrombocy topenic disorder 801446138 Active 2021 THROMBOCY TOPENIA; Recorded 2 1:08PM by Devon Feldman MD, Office Visit Pro moted acu ity set as * Not Available [facility] 2 13:59:35 Polymyalg ia rheumatic a 64769084 Active 2021 PMR (POLYMYAL IDA RHEUMATIC A); Recorded 2 1:08PM by Devon Feldman MD, Office Visit Pro moted acu ity set as * Not Available [facility] 2 13:59:36 Secondary diabetes mellitus 0188519 Active 2021 STEROID-I NDUCED DIABETES; Recorded 2 1:09PM by Devon Feldman MD, Office Visit Pro moted acu ity set as * Not Available [facility] 2 13:59:36 Hypertens paul disorder 70299475 Active 2021 HTN (HYPERTEN VICKY); Recorded 2 1:08PM by Devon Feldman MD, Office Visit Pro moted acu ity set as * [facility] Available [facility] 2 13:59:36 Hyperlipi demia 39027111 Active 2021 HYPERLIPI DEMIA; Recorded 2 1:08PM by Devon Feldman MD, Office Visit Pro moted acu ity set as * Not Available [facility] 2 13:59:36 Anemia 895749398 Active 2021 ANEMIA; Recorded 2 1:08PM by Devon Feldman MD, Office Visit Pro moted acu ity set as * Not Available [facility] 2 13:59:36 Prostate specific antigen above reference range 347676310 Active 2022 Carmelita andrea, [facility] 3 13:19:14 Type 2 diabetes mellitus without complicat ion 586913383 Active 2022 Devon Feldman MD [address], [address], [place], [address] , [facility] 3 13:57:35 Carotid atheroscl erosis 311623170 Active 2022 Devon Feldman MD [address], [place], [address] , [facility] 3 14:00:08 Immunodef iciency disorder 626340950 Active 2022 Devon Feldman MD [address], [place], [address] , [facility] 3 17:09:48 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 Procedures Surgical History Date Name Laterality Status Provider Name and Address Organization Details Recorded Time 10/16/19 24 AWV 0038/1416 completed [facility] 10/12/2023 10:54:17 10/16/19 24 Q Activities of daily living were assessed(functio nal status) 1170F [facility] 10/12/2023 10:54:17 10/16/19 24 Q Advanced Care plan not currently documented/will provide plan information today 1124F [facility] 10/12/2023 10:54:17 10/16/19 24 Q Medication Review was completed today 1159F/1160F [facility] 10/12/2023 10:54:17 10/16/19 24 Q Medications obtained, updated, or reviewed G8427 completed [facility] 10/12/2023 10:54:17 10/16/19 24 Q Presence or Absence of urinary incontinence was assessed 1090F [facility] 10/12/2023 10:54:17 10/16/[address] [facility] 10/12/2023 10:54:17 10/04/19 23 AWV 0438/0439 completed Anita [facility] 10/03/2022 09:48:19 10/04/19 23 Q Activities of daily living were assessed(functio nal status) 1170F completed [facility]ita [facility] 10/03/2022 09:48:19 10/04/19 23 Q Advanced Care plan not currently documented/will provide plan information today 1124F completed [facility] 10/03/2022 09:48:19 10/04/19 23 Q Medication Review was completed today 1159F/1160F [facility]/[place] 10/03/2022 09:48:19 10/04/19 23 Q Medications obtained, updated, or reviewed G8427 completed [facility] 10/03/2022 09:48:19 10/04/19 23 Q Presence or Absence of urinary incontinence was assessed 1090F completed [facility]/[place] 10/03/2022 09:48:19 10/04/19 23 AWV DONE completed [facility] 10/03/2022 09:48:19 06/26/19 22 excision of basal cell carcinoma [facility]/[place] 10/03/2022 09:50:54 Imaging Results None recorded. Procedure Notes None recorded. Medical Equipment None Reported. Allergies Allergen ID Allergen Name Allergen Category Reaction Reaction Severity Criticality Documentation Date Start Date Code Code System Note Provider Name and Address Organization Details Recorded Time 611075 tree and shrub pollen environme nt,medica tion respirato ry distress Not available Not available 10/03/2022 70739 UNK Anita [facility] /[place] 04/10/202 3 09:49:24 Medications Name Sig Start Date Stop Date Status Note LastModified by Organization Details LastModified Time amoxicillin 500 mg capsule TAKE 1 CAPSULE BY MOUTH EVERY 8 HOURS UNTIL GONE 07/02 completed Not Available Not Available Not Available prednisone 10 mg tablet TAKE 1 TABLET BY MOUTH EVERY DAY FOR 10 DAYS 01/10 completed Not Available Not Available Not Available gabapentin 600 mg tablet TAKE 3 TABLETS BY MOUTH EVERY DAY active Not Available Not Available No t Available doxycycline hyclate 100 mg capsule TAKE 1 CAPSULE BY MOUTH TWICE A DAY WITH FOOD AND WATER FOR 5 DAYS 10/03 completed Not Available Not Available Not Available atorvastati n 20 mg tablet TAKE 1 TABLET BY MOUTH EVERY DAY active Not Available Not Available No t Available atorvastati n 10 mg tablet TAKE 1 TABLET BY MOUTH EVERY DAY active Not Available Not Available No t Available phenazopyri dine 200 mg tablet TAKE 1 TABLET (200 MG TOTAL) BY MOUTH 3 TIMES A DAY NEEDED FOR PAIN 10/15 completed Not Available Not Available Not Available metformin 850 mg tablet TAKE 1 TABLET BY MOUTH TWICE A DAY WITH FOOD 10/03 completed Not Available Not Available Not Available ciprofloxac in 500 mg tablet TAKE 1 TABLET BY MOUTH TWICE A DAY 01/10 completed Not Available Not Available Not Available triamcinolo ne acetonide 0.1 % topical cream APPLY 1 APPLICATI ON EXTERNALL Y TWICE A DAY FOR 10 DAYS 01/10 completed Not Available Not Available Not Available ofloxacin 0.3 % ear drops INSTILL 10 DROPS INTO AFFECTED EAR(S) BY OTIC ROUTE ONCE DAILY 10/15 completed Not Available Not Available Not Available tamsulosin 0.4 mg capsule TAKE 1 CAPSULE BY MOUTH EVERY DAY 01/03 completed Not Available Not Available Not Available metformin 1,000 mg tablet TAKE 1 TABLET BY MOUTH TWICE A DAY WITH MEALS active Not Available Not Available No t Available brimonidine 0.2 % eye drops INSTILL 1 DROP INTO BOTH AFFECTED EYE TWICE A DAY active Not Available Not Available No t Available docusate sodium 100 mg capsule TAKE 1 CAPSULE BY MOUTH TWICE A DAY 01/10 completed Not Available Not Available Not Available mupirocin 2 % topical ointment APPLY TOPICALLY TWICE A DAY TO SURGICAL SITE FOR 7-14 DAY OR UNTIL FULLY HEALED 10/03 completed Not Available Not Available Not Available ibuprofen 600 mg tablet TAKE ONE TABLET ONE HOUR PRIOR TO DENTAL APPOINTME NT AND ONE TABLET EVERY 6 HOURS FOR PAIN. active Not Available Not Available No t Available lisinopril 2.5 mg tablet TAKE 1 TABLET BY MOUTH EVERY DAY active Not Available Not Available No t Available finasteride 5 mg tablet TAKE 1 TABLET BY MOUTH EVERY DAY 10/15 completed Not Available Not Available Not Available alfuzosin ER 10 mg tablet,exte nded release 24 hr 10 MG ORALLY EVERY DAY ADMINISTE R AFTER DINNER EACH DAY 01/10 completed Not Available Not Available Not Available BD Ultra-Fine Mini Pen Needle 31 gauge x 3/16 USE 1 NEEDLE DAILY active Not Available Not Available No t Available chlorhexidi ne gluconate 0.12 % mouthwash RINSE MOUTH WITH 15ML (1 CAPFUL) FOR 30 SECONDS IN MORNING AND EVENING AFTER BRUSHING, THEN SPIT 01/10 completed Not Available Not Available Not Available Basaglar KwikPen U-100 Insulin 100 unit/mL (3 mL) subcutaneou s INJECT 30 UNIITS SUBCUTANE OUSLY ONCE A DAY 30 DAYS active Not Available Not Available No t Available BinaxNOW COVID-19 Ag Self Test kit REFER TO MANUFACTU RER INSTRUCTI ONS INCLUDED IN PACKAGING 10/03 completed Not Available Not Available Not Available Vitals Date Recorded Body height Body temperature Respiratory rate Body mass index (BMI) Body weight Pain severity - 0-10 verbal numeric rating [Score] - Reported Oxygen saturation Oxygen saturation in Arterial blood by Pulse oximetry Heart rate Systolic And Diastolic Provider Name and Address Organization Details Last Updated DateTime 4 179.07 cm 97.4 [degF] 16 /min 30.2 kg/m2 48091.3 3 g 0 98 % 98 % 80 /min 120/88 mm[Hg] Krystal jones [facility]-[place] 4 14:45:58 Date Recorded Body height Body mass index (BMI) Body weight Heart rate Body temperature Oxygen saturation Oxygen saturation in Arterial blood by Pulse oximetry Pain severity - 0-10 verbal numeric rating [Score] - Reported Systolic And Diastolic Provider Name and Address Organization Details Last Updated DateTime 3 179.07 cm 28.9 kg/m2 03399.5 6 g 87 /min 97.8 [degF] 97 % 97 % 3 110/78 mm[Hg] Tania jones On license of [facility] /[place] 3 13:30:05 Date Recorded Body height Body mass index (BMI) Body weight Body temperature Heart rate Oxygen saturation Oxygen saturation in Arterial blood by Pulse oximetry Systolic And Diastolic Provider Name and Address Organization Details Last Updated DateTime 4 179.07 cm 29.7 kg/m2 50759.4 g 97.8 [degF] 95 /min 96 % 96 % 100/68 mm[Hg] Ruthie Suabilio On license of [facility] /[place] 4 14:20:56 Date Recorded Body height Body mass index (BMI) Body weight Heart rate Body temperature Pain severity - 0-10 verbal numeric rating [Score] - Reported Oxygen saturation Oxygen saturation in Arterial blood by Pulse oximetry Systolic And Diastolic Provider Name and Address Organization Details Last Updated DateTime 4 179.07 cm 30.6 kg/m2 13575.1 1 g 82 /min 97.8 [degF] 0 97 % 97 % 140/80 mm[Hg] Tania jones On license of [facility] /[place] 4 14:00:40 Date Recorded Body height Body mass index (BMI) Body weight Heart rate Body temperature Pain severity - 0-10 verbal numeric rating [Score] - Reported Oxygen saturation Oxygen saturation in Arterial blood by Pulse oximetry Systolic And Diastolic Provider Name and Address Organization Details Last Updated DateTime 3 179.07 cm 29.7 kg/m2 55993.6 8 g 92 /min 97.8 [degF] 0 97 % 97 % 120/80 mm[Hg] Tania jones On license of [facility] /[place] 3 13:30:32 Social History Question Answer Notes LastModified by Organizat ion Details LastModified Time Tobacco Smoking Status Never Smoker [facility] 07/04/2022 13:45:26 Do You Have An Advance Directive? Yes Pt. Going To Bring Copies Information not available 10/03/2022 Are You Blind Or Do You Have Difficulty Seeing? No Information n ot available 10/03/2022 Are You Deaf Or Do You Have Serious Difficulty Hearing? No Information not available 10/03/2022 What Type Of Diet Are You Following? REGULAR Information n ot available 10/03/2022 What Is The Highest Grade Or Level Of School You Have Completed Or The Highest Degree You Have Received? [id number] Information not available 10/03/2022 How Many Days Of Moderate To Strenuous Exercise, Like A Brisk Walk, Did You Do In The Last 7 Days? 2 Information not available 10/03/2022 A. General Health: In General Would You Say Your Health Is? Fair Information not available 10/03/2022 B. Screening: Do You Feel Isolated From Family And Friends? No Information not available 10/03/2022 C. Incontinence Screening: Do You Find It Hard To Control Your Bladder? Yes Information not available 10/03/2022 E. Oral Health: How Often During The Past 4 Weeks Have You Been Bothered By Teeth Or Dentures? Seldom Pt. Going For 2nd Implant Information not available 10/03/2022 D. Sexual Health: How Often During The Past 4 Weeks Have You Been Bothered By Sexual Problems? Never Information not available 10/03/2022 Do You Have Any Barriers To Taking Your Medications As Prescribed? No Barriers. I Am Able To Take As Prescribed. [email or web address] Information not available 07/04/2022 Have You Had An Unplanned Hospital Admission In The Last Year? No [email or web address] Information not available 07/04/2022 Have You Had An Unplanned Hospital Admission In The Last 30 Days? No [email or web address] Information not available 07/04/2022 Have You Had An ER Visit Since You Were Last Seen? No [email or web address] Information not available 07/04/2022 FOOD INSECURITY: In The Past 6 Months, Did You Ever Eat Less Than You [place] You Should Because There Wasn t Enough Money For Food? No Information not available 10/12/2023 Is Patient On Telephone Or Video? No Information not available 10/12/2023 HOUSING STABILITY: Are You Worried Or Concerned That In The Next Few Months You May Not Have Stable Housing? No Information not available 10/12/2023 HOUSING CONDITIONS: Do Any Of The Following Describe A Problem(s) With Your Current Housing Situation? None Information n ot available 10/12/2023 UTILITY NEEDS: In The Past 6 Months, Has The Electric, Gas, Oil, Water, Telephone, Or Internet Company Threatened To Shut Off Services In Your Home? No Information not available 10/12/2023 TRANSPORTATION: In The Past 6 Months, Has Lack Of Transportation Kept You From Medical Appointments, Meetings, Work, Or Getting Things For Daily Living? No Information not available 10/12/2023 FINANCIAL STRAIN: In The Past 6 Months, Did You Skip Medications Or Doctors Appointments To Save Money? No Information not available 10/12/2023 CAREGIVING: Do Problems Arranging Care For A Child, Disabled Adult Or Elderly Person Make It Difficult For You To Work Or Study? No Information not available 10/12/2023 HEALTH LITERACY: Do You Often Have A Problem Understanding What Is Told To You About Your Medical Conditions And Treatments? No Information not available 10/12/2023 EMPLOYMENT: In The Past 6 Months, Has Being Unemployed Or Underemployed Been A Problem For You? No Information not available 10/12/2023 SOCIAL SUPPORT: Are You Disappointed With The Amount Of Socialization And Support That You Receive From Family, Friends, And The Community? No Information n ot available 10/12/2023 (Not Asked Over The Phone Or Video) PV SCREENING: In The Past 6 Months, Has Anyone In Your Life Hurt You, Made You Feel Uncomfortable, Or Made You Feel Unsafe? No Information not available 10/12/2023 (Not Asked Over The Phone Or Video) PV ASSISTANCE: If You Checked YES To The Interpersonal Violence Question, Would You Like To Speak To Someone Who Can Assist You With This Need? No Information not available 10/12/2023 URGENT NEEDS: Are Any Of Your Needs Urgent? (for Example: I Don t Have Food Tonight, I Don t Have A Place To Sleep Tonight) No Information not available 10/12/2023 ASSISTANCE: If You Answered YES To Any Of The Boxes Above, Would You Like To Receive Assistance With Any Of These Needs? No Information not available 10/12/2023 Patient Declines SDOH Screening? No Information not available 10/12/2023 HRA Elements Reviewed And Updated W/patient Yes Information no t available 10/03/2022 Do You Have A Medical Power Of Licensed Occupational Therapist? Yes Information not available 10/03/2022 What Was The Date Of Your Most Recent Tobacco Screening? 04/10/2024 Information not available 04/10/2024 How Many Children Do You Have? -2 Information not available 10/03/2022 What Is Your Relationship Status? Single Information not available 10/03/2022 Do You Use Your Seat Belt Or Car Seat Routinely? Yes Information not available 10/03/2022 Are You Sexually Active? No Information not available 10/03/2022 Do You Have Smoke And Carbon Monoxide Detectors In Your Home? Yes Information not available 10/03/2022 Are There Any Smokers In Your House? No Information not available 10/03/2022 Do You Use Sunscreen Routinely? Yes Information not available 10/03/2022 Has Tobacco Cessation Counseling Been Provided? No [email or web address] Information not available 07/04/2022 Do You Have Difficulty Walking Or Climbing Stairs? No Information not available 10/03/2022 How Many Days In The Past Year Have You Consumed 4 Or More Drinks? 52 PT. HAS 6 PACK IN ONE NIGHT Information not available 10/03/2022 Sex: Male Functional Status Question Answer Note LastModified by Organizat ion Details LastModified Time Do you use any illicit or recreational drugs? No [email or web address] Information not available 07/04/2022 Do you or have you ever used any other forms of tobacco or nicotine? Yes [email or web address] Information not available 07/04/2022 What is your level of alcohol consumption? Occasional [email or web address] Information not available 07/04/2022 Do you or have you ever used smokeless tobacco? [id number] Cigar Information n ot available 10/03/2022 Are you currently employed? No Information not available 10/03/2022 Do you have transportation difficulties? No Information not available 10/03/2022 Are you able to walk? YESWOREST Information not available 10/03/2022 Are you able to care for yourself independently? Yes Information not available 10/03/2022 Do you have difficulty dressing, bathing, grooming, or toileting? No Information not available 10/03/2022 Do you or have you ever used e-cigarettes or vape? Never used electronic cigarettes [email or web address] Information not available 07/04/2022 Mental Status Question Answer Note LastModified by Organizat ion Details LastModified Time Do you feel stressed (tense, restless, nervous, or anxious, or unable to sleep at night)? [id number] Information not available 10/03/2022 Do you have difficulty concentrating, remembering or making decisions? No Information no t available 10/03/2022 Family History Relationship Description Onset Age of this Age Resolved Age Notes LastModified by Organization Details LastModified Time Father Hypertensive disorder [email or web address] Not available 03/2023 09:49:53 Father Diabetes mellitus [email or web address] Not available 03/2023 09:50:01 Mother Coronary atherosclero sis aphommachanh Not available 03/2023 09:50:17 Mother Malignant neoplasm of bone 62 [email or web address] Not available 2022 13:18:09 Medical History Condition Response Diabetes Y Nasal or Sinus Problems Y High blood pressure Y Substance Abuse N Elevated Cholesterol/Triglycerides Y Cancer, other Neurologic Disease/Disorder Y Glaucoma Y Immunizations Vaccine Type Date Status Note Provider Nam e and Address Organization Details Recorded Time Pneumococcal Conjugate, unspecified formulation 9 completed Not Available [facility] 06/11/2023 00:05:34 Pneumococcal Conjugate, unspecified formulation 0 completed Not Available [facility] 06/11/2023 00:05:34 Influenza, high-dose, quadrivalent, PF 2 completed Tania Weber [facility]/[place] 01/03/2023 13:31:26 COVID-19, mRNA, LNP-S, PF, 100 mcg/0.5mL dose or 50 mcg/0.25mL dose 1 completed Tania Pamreniere null, On license of [facility]/[place] /[place] 01/03/2023 13:31:26 COVID-19, mRNA, LNP-S, PF, 100 mcg/0.5mL dose or 50 mcg/0.25mL dose 1 completed Tania Lafreniere null, [facility] 01/03/2023 13:31:26 pneumococcal polysaccharide PPV23 0 completed Tania Lafreniere null, [facility] 01/03/2023 13:31:26 pneumococcal polysaccharide PPV23 9 completed Tania Lafreniere null, [facility] 01/03/2023 13:31:26 zoster live 0 completed Tania Lafreniere null, [facility] 01/03/2023 13:31:26 zoster live 9 completed Tania Lafreniere null, [facility] 01/03/2023 13:31:26 Influenza, split virus, trivalent, preservative 8 completed Tania Pamreniere null, [facility] 01/03/2023 13:31:26 Td (adult), 5 Lf tetanus toxoid, preservative free, adsorbed 0 completed Tania Lafreniere null, On license of [facility] 01/03/2023 13:31:26 Influenza, split virus, quadrivalent, PF 0 completed Tania Lafreniere null, [facility] 01/03/2023 13:31:26 RSV, recombinant, protein subunit RSVpreF, adjuvant reconstituted, 0.5 mL, PF 4 completed Tania Pamreniere null, On license of [facility]/[place] 04/02/2024 10:58:03 Influenza, split virus, trivalent, preservative 0 completed Tania Weber [facility] 04/02/2024 10:58:03 Influenza, split virus, trivalent, preservative 9 completed Not [facility] 00:05:34 Past Encounters Encounter ID Performer Location Encounter Start Date Encounter Closed Date Diagnosis/Indication Diagnosis SNOMED-CT Code Diagnosis ICD10 Code Diagnosis Note [id number] MD AMANDA Hernandez_[facility] [place] [address] 07/04/2022 13:36:14 07/04/2022 14:39:36 Hypertensive disorder 90358922 I10 Polymyalgi a rheumatica 77394557 M35.3 Thrombocyt openic disorder 764472628 D69.6 Hyperlipidemia 38076540 E78.5 Glaucoma 03389660 H40.9 Anemia 263043170 D64.[address] eated type 2 diabetes mellitus 507886268 Z79.4 Adult heal th examination 122366997 Z00.00 Screening for malignant neoplasm of colon 838977404 Z12.11 Z12.12 [id number] MD Jonna Hernandez [facility] [address] [place] [address] 10/03/2022 12:59:58 10/03/2022 14:16:36 Advance directive discussed with patient 024271740 Z71.89 Patient counseled on advanced care planning Depression screening 171 984218 Z13.31 Depression Screening Negative Depression screening positive 4062684146 46192 R45.89 Z13.31 Body mass index 30+ - obesity 026927208 Z68.30 [id number] MD Jonna Hernandez [address] [place] [address] 10/03/2022 13:01:11 10/03/2022 14:16:50 Body mass index 30+ - obesity 754292141 Z68.30 Tick bite 40043623 W57.X XXA right calf in past Type 2 marty betes mellitus without complication 341398934 E11.9 Carotid atherosclerosis 334459734 I65.29 Hypertensive disorder 38 907608 I10 Polymyalgi a rheumatica 46793057 M35.3 Prostate s pecific antigen above reference range 058136866 R97.20 Glaucoma 01757309 H40.9 Immunodefi ciency disorder 703148680 D84.81 Hyperglyce riddhi due to type 2 diabetes mellitus 3542943602 30438 E11.65 chk labs, cont meds and diet, recc wt loss [id number] Devon Feldman MD _[facility] [address] [place] [address] 01/03/2023 13:15:32 01/03/2023 13:54:17 Type 2 diabetes mellitus without complication 163560692 E11.9 Hyperglyce riddhi due to type 2 diabetes mellitus 1273622145 68408 E11.65 chk labs, cont meds and diet, recc wt loss Hyperlipidemia 93585594 E78.5 Hypertensive disorder 38 469401 I10 Polymyalgi a rheumatica 13812958 M35.3 Immunodefi ciency disorder 217328418 D84.81 Retention of urine 74401 4002 R33.9 [id number] Devon Feldman MD _[facility] [place] [address] 06/12/2023 13:20:33 06/12/2023 14:16:40 Type 2 diabetes mellitus without complication 222524564 E11.9 Hypertensive disorder 38 409613 I10 Hyperlipidemia 86978767 E78.5 Otitis externa 4102342 H 60.91 [id number] Devon Feldman MD _[facility] [address] [place] [phone] 10/16/2023 14:39:07 10/16/2023 15:43:39 Advance directive discussed with patient 108470780 Z71.89 Patient counseled on advanced care planning Depression screening 171 076053 Z13.31 Depression Screening Negative Depression screening positive 7153486038 71839 R45.89 Z13.31 Depression screening positive. No suicidal or homicidal thoughts. 1. Medication Plan: . 2. Follow up Plan: . 3. All treatment plan options discussed with patient including medication s, counsellin g, and specialist referral. 4. Patient was advised to call office if symptoms worsen. 5. Patient verbalized understand ing. 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 1154303658 64315 E11.65 chk labs, cont meds and diet, recc wt loss [id number] Devon Feldman MD [facility] [address] [address] 01/11/2024 14:14:22 01/11/2024 15:13:17 Type 2 diabetes mellitus without complication 616959282 E11.9 stable, monitor, cont meds Screening for cardiovascular system disease 141661190 Z13.6 Discussed, smokes, DM, agrees to have it, understand s it is self pay [id number] Devon Feldman MD _[facility] [address] [address] 04/10/2024 13:40:59 04/10/2024 16:00:08 Calcification of coronary artery 603052589 I25.84 I10 E78.5 E11.65 Level 517; EST negative, needs to see cardiology Hyperlipidemia 71324833 E78.5 LDL 90, but not at goal for CAD, increase the atorvastat in. Type 2 marty betes mellitus without complication 452429618 E11.9 stable, monitor, cont meds Health Concerns Section Related Observation LastModified by Organization Detai ls LastModified Time None Recorded Concern Status LastModified by Organization Details LastModified Time None Recorded Advance Directives Directive Y: pt. going to bring copies Payers Insurance Date Sequence Insurance Name Policy Number Policy Cottrell Covered Member ID Cottrell Member ID Guarantor Name 01/13/2023 2 UNSPECIFIED REMIT PAYOR Kurtis Romo 04/07/2024 1 [place] MEDIC[place] SERVICES - NATIONAL GOVERNMENT SERVICES Kurtis Romo [id number] Kurtis Romo 08/29/2024 3 FOR LIFE ( - MEDICARE SUPPLEMENT) Kurtis Romo [id number] Kurtis Romo 05/28/2024 2 [employer] - SENIOR SERVICES PLAN F (MEDICARE SUPPLEMENT) [id number] Kurtis Romo [id number] Kurtis Romo
== END 2025-01-21 15:54 | disposition home or self-care (01) ==
LOC: HO.HSM 15:32
PROVIDERS: PCP Internal Medicine Medical Oncology; Referring Provider Internal Medicine Medical Oncology; Visit Provider Registered Nurse
DX: G57.53 Tarsal tunnel syndrome, bilateral lower limbs (principal); M79.2 Neuralgia and neuritis, unspecified; G25.0 Essential tremor
CPT/HCPCS: 99214

== ENCOUNTER → 2025-01-21 15:31 | Outpatient (BNVA) | payer MEDICARE, OTHER, SELFPAY | PROVIDERS: PCP Internal Medicine Medical Oncology; Referring Provider Internal Medicine Medical Oncology; Visit Provider Registered Nurse | DX: G57.53 Tarsal tunnel syndrome, bilateral lower limbs (principal); M79.2 Neuralgia and neuritis, unspecified; G25.0 Essential tremor | CPT/HCPCS: 99212 ==